=== PATIENT | female | born 1965 | race Two or more races ===

== ENCOUNTER 2016-11-21 12:38 | Emergency (ER) | payer MEDICARE, MEDICAID ==
[2016-11-21 12:54] VITALS: TEMP 98.6; BMI 28.3
[2016-11-21] MEDS ORDERED: NS 2,000 ML IV ONE (13:02)
[2016-11-21] MEDS ORDERED: ONDANSETRON HCL 4 MG/2 ML VIAL IV ONE (13:02)
[2016-11-21] MEDS ORDERED: HYDROmorphone 1 MG INJECTION IV ONE (13:07)
--- NOTE | 2016-11-21 13:33 | EDPRACDOC ---
- General Information Chief Complaint: Abdominal Pain Stated Complaint: ABD PAIN VOMITING/DIARRHEA Time Seen by Provider: 11/21/16 13:01 Information Source: Patient Mode Of Arrival: Car Home Medications: Home Medications Ondansetron [Zofran Odt] 4 mg PO Q6H PRN #15 tab.daviddis 11/21/16 Allergies/Adverse Reactions: Allergies Allergy/AdvReac Type Severity Reaction Status Date / Time acetaminophen [From Tylenol] Allergy Edema-Oral/ Verified 10/22/16 07:59 Lip aspirin Allergy Rash-Genera Verified 10/22/16 07:59 lized - History of Present Illness Onset: 0600 Pain Location: Reports: Diffuse Pain Context: Reports: Spontaneous Pain Severity: Mild Pain Quality: Reports: Cramping : No Adult Abdominal History: Reports: Abdominal Surgery Female Abdominal History: Reports: Abdominal Surgery Female Associated Signs & Symptoms: Reports: Nausea, Vomiting, Diarrhea Oral Intake: Decreased Urinary Output: Normal Other History: CHOLY, HYSTERECTOMY, AND BLADDER TUMOR SURGERY ED Past Medical History - History Reviewed Yes Nurses notes reviewed and agree except as marked - Patient Medical History Musculoskeletal History: Reports: Arthritis Psychological History: Denies: Depression Surgical History: Reports: Cholecystectomy, Hysterectomy - Family Medical History Reports: Hypertension (DAD,MOM,SIBLINGS). Denies: Diabetes, Cancer, Stroke, Cardiac Disorders - Social Medical History Smoking Status: Never smoker EDM Review of Systems - Review of Systems ROS Negative Except as Marked: Yes All systems reviewed and were negative except as marked - Physical Exam Constitutional: Alert (Awake), No apparent distress Oriented to: Time, Person, Place Last recorded Vital Signs: Last Vital Signs Temp 98.6 F 11/21/16 12:48 Pulse 76 11/21/16 12:48 Resp 20 11/21/16 12:48 BP 161/82 11/21/16 12:48 Pulse Ox 97 11/21/16 12:48 Oxygen Pulse Oxygen Saturation 97 O2 Device Room Air Oxygen Flow Rate Fraction of Inspired Oxygen ( FIO2) - HEENT Head: Normal ( normocephalic) Eye Exam: Normal (PERRL, EOMI, Sclera white) Oropharynx: Normal (Pharynx:Moist without exudate,Gums-no swelling) Tympanic Membrane: Normal ENT EAC: Normal TMJ: Normal Nose: No Symptoms Reported (septum midline) Neck: Normal (FROM, trachea at midline) - Respiratory/Cardiovascular Respiratory: Normal - CTA (BBS clear to auscultation without adventitious sounds ) Cardiovascular: Normal (RRR without murmur, gallop or rub) - GI Auscultation: Normal (NABS) Palpation: Normal (Soft,No rebound or guarding, non distended) Tenderness: Non tender Shah's Sign: Negative - Musculoskeletal Back: Normal (Non-Tender) Extremities: Normal (Normal tone, Pulses 2+ No cyanosis or edema, FROM) - Integumentary Skin: Normal, Warm, Dry Lymphatics: Normal (no adenopathy) - Neurologic Memory Impaired: Normal Motor Function: Normal (Normal tone, Pulses 2+ No cyanosis or edema, FROM) Cranial Nerve: Normal (CN II-X11 intact sensation, strength 5/5) Cerebellar: Normal Mood Description: Normal Perception: Normal - Results 11/21/16 13:18 11/21/16 13:18 WBC 12.8 xk/uL (3.8-10.8) H 11/21/16 13:18 RBC 4.95 xM/uL (4.20-5.40) 11/21/16 13:18 Hgb 15.1 g/dL (12.0-16.0) 11/21/16 13:18 Hct 45.1 % (36-47) 11/21/16 13:18 MCV 91 fL (81-99) 11/21/16 13:18 MCH 30.5 pg (27-32) 11/21/16 13:18 MCHC 33.5 g/dl (33-36) 11/21/16 13:18 RDW 13.3 % (11.5-14.5) 11/21/16 13:18 Plt Count 271 xk/uL (130-400) 11/21/16 13:18 MPV 8.1 fL (7.4-10.4) 11/21/16 13:18 Neut % (Auto) 73.4 % (45-76) 11/21/16 13:18 Lymph % (Auto) 15.8 % (17-44) L 11/21/16 13:18 Amador % (Auto) 9.5 % (3-10) 11/21/16 13:18 Eos % (Auto) 0.9 % (0-5) 11/21/16 13:18 Baso % (Auto) 0.4 % (0-2) 11/21/16 13:18 Absolute Neuts (auto) 9.34 xk/uL (1.7-8.2) H 11/21/16 13:18 Absolute Lymphs (auto) 1.92 xk/uL (0.65-4.75) 11/21/16 13:18 Sodium 144 mEq/L (137-146) 11/21/16 13:18 Potassium 4.0 mEq/L (3.5-5.1) 11/21/16 13:18 Chloride 102 mEq/L (98-107) 11/21/16 13:18 Carbon Dioxide 29 mMOL/L (22-33) 11/21/16 13:18 Anion Gap 17 mEq/L (8-16) H 11/21/16 13:18 BUN 15 MG/DL (7-17) 11/21/16 13:18 Creatinine 0.60 MG/DL (0.52-1.04) 11/21/16 13:18 Estimated GFR (MDRD) > 60 mL/min (>=60) 11/21/16 13:18 Glucose 109 MG/DL (70-99) H 11/21/16 13:18 Calculated Osmolality 279 MOs/Kg (270-290) 11/21/16 13:18 Calcium 9.9 MG/DL (8.4-10.2) 11/21/16 13:18 Total Bilirubin 0.7 MG/DL (0.2-1.3) 11/21/16 13:18 AST 30 IU/L (14-36) 11/21/16 13:18 ALT 41 IU/L (9-52) 11/21/16 13:18 Alkaline Phosphatase 113 IU/L (38-126) 11/21/16 13:18 Total Protein 8.4 G/DL (6.3-8.2) H 11/21/16 13:18 Albumin 4.8 G/DL (3.5-5.0) 11/21/16 13:18 Lab Results 11/21/16 11/21/16 13:18 13:18 WBC 12.8 H RBC 4.95 Hgb 15.1 Hct 45.1 MCV 91 MCH 30.5 MCHC 33.5 RDW 13.3 Plt Count 271 MPV 8.1 Neut % (Auto) 73.4 Lymph % (Auto) 15.8 L Amador % (Auto) 9.5 Eos % (Auto) 0.9 Baso % (Auto) 0.4 Absolute Neuts (auto) 9.34 H Absolute Lymphs (auto) 1.92 Sodium 144 Potassium 4.0 Chloride 102 Carbon Dioxide 29 Anion Gap 17 H BUN 15 Creatinine 0.60 Estimated GFR (MDRD) > 60 Glucose 109 H Calculated Osmolality 279 Calcium 9.9 Total Bilirubin 0.7 AST 30 ALT 41 Alkaline Phosphatase 113 Total Protein 8.4 H Albumin 4.8 Decision Time to Discharge: 14:30 - Departure Yes I personally saw and evaluated the patient. Disposition: Home Condition: Good Final Diagnosis: Gastroenteritis Instructions: Gastroenteritis (ED), Acute Abdominal Pain (ED) Education/Counseling Given To: Patient, Family Member Education/Counseling Given Regarding: Diagnosis, Treatment, Prognosis Referrals: None,No Provider [Primary Care Provider] - One Week Logan Jay MD [Staff Physician] - One Week Prescriptions: New Ondansetron [Zofran Odt] 4 mg PO Q6H PRN #15 tab.rapdis PRN Reason: Nausea/Vomiting
[2016-11-21 13:34] LABS: AUTOMATED BASOPHIL 0.4 % (0-2); AUTOMATED EOSINOPHIL 0.9 % (0-5); AUTOMATED LYMPH 15.8 % (17-44); AUTOMATED MONOCYTE 9.5 % (3-10); AUTOMATED NEUTROPHIL 73.4 % (45-76); MPV 8.1 fL (7.4-10.4)
--- NOTE | 2016-11-21 13:42 | DIRPT ---
CLINICAL DATA: Vomiting. Mid abdominal pain. Diarrhea. Symptoms since this morning. EXAM: DG ABDOMEN ACUTE W/ 1V CHEST COMPARISON: CT 10/14/2016 FINDINGS: Prior cholecystectomy. The bowel gas pattern is normal. There is no evidence of free intraperitoneal air. No suspicious radio-opaque calculi or other significant radiographic abnormality is seen. Heart size and mediastinal contours are within normal limits. Both lungs are clear. IMPRESSION: Negative abdominal radiographs. No acute cardiopulmonary disease. Electronically Signed By: Gabe Larkin M.D. On: 11/21/2016 13:40
[2016-11-21 13:52] LABS: BLOOD UREA NITROGEN 15 MG/DL (7-17); CALCIUM 9.9 MG/DL (8.4-10.2); CALCULATED OSMOLALITY 279 MOs/Kg (270-290); CHLORIDE 102 mEq/L (98-107); GLUCOSE 109 MG/DL (70-99); SODIUM LEVEL 144 mEq/L (137-146); TOTAL PROTEIN 8.4 G/DL (6.3-8.2)
[2016-11-21 15:16] VITALS: BP 118/62; PULSE 62
== END 2016-11-21 15:10 | disposition home or self-care (01) ==
LOC: ED 12:38
DX: K52.9 Noninfective gastroenteritis and colitis, unspecified (principal)
CPT/HCPCS: 36415; 74022; 80053; 85025; 96361; 96374; 96375; 99284; J1170; J2405